=== PATIENT | female | born 1930 | race Caucasian/White ===

== ENCOUNTER 2016-12-31 10:26 | Observation (INO) | payer OTHER ==
[2016-12-31 10:44] VITALS: BMI 23.3
--- NOTE | 2016-12-31 11:02 | DR.GENAD ---
HPI - PCP Primary Care Physician: Dk - Complaint/Symptoms Chief Complaint Doctors Comments: Family states the patient was brushing her teeth in the bathroom and she heard a boom and the patient had fallen and hit the back of her head. She was on the floor and could not get up. States initially patient was not talking clearly and droowling from the mouth. States patient begin to come around and she went to the bathroom and had a large watery stool. Patient did not have any urine or fecal incontinence. She is a patient of Dr. Root and has dementia. Family states she fell about two years ago with compression fracture in her back that they put cement in and they are wondering if she hurt her back because they did not see how she fell and she is demented. Family states she has a history of recurrent UTI and they want that checked. States that by the time the ambulance got there she was talking normally and back to her usual self. Chief Complaint:: Syncope, fall at home - Nurses notes reviewed Nurses Notes Review: Yes - Source History Provided: Patient, Family Member - Mode of Arrival Mode of Arrival: Stretcher - Timing Onset of Chief Complaint: 12/31/16 Came on: Suddenly - Duration Duration: Constant How lon Duration: Hours - Location Location: occipital head - Severity Severity: Mild - Modifying Factors Worsens:: nothing Improves:: nothing PMH - PMH Past Medical History: Yes Past Medical History: CVA, Arthritis Past Surgical History: Yes Surgical History: Cholecystectomy, Hysterectomy - Family History History of Family Medical Conditions: Yes Family Medical History: Cancer, CT - Social History Does patient currently use any type of tobacco product: No Have you used tobacco products in the last 12 months: No Type of Tobacco Use: None Does any household member use tobacco: No Alcohol Use: None Do you use any recreational Drugs:: Yes Lives With: Family Lives Where: Home - infectious screening In the last 2 months have you had wt loss of >10#?: NO Have you had fever, night sweats or hemotysis?: No Have you traveled outside the country in the last 6 months?: No Isolation: Standard ROS - Review of Systems Constitutional: No Symptoms Reported. negative: See HPI, Chills, Diaphoresis, Fever, Malaise, Weakness, Irritable, Fatigue, Loss of Appetite, Other Eyes: No Symptoms Reported. negative: See HPI, Eye Pain, Blurred Vision, Tearing, Discharge, Photophobia, Diplopia, Other ENTM: No Symptoms Reported, Hearing Loss (hearing loss in one ear for a long time), Mouth Swelling (left lower jaw swelling that the dentist is working on presently) Respiratoy: No Symptoms Reported. negative: See HPI, Productive Cough, Non- Productive Cough, Moist Cough, Dry Cough, Hacking Cough, Barking Cough, Brassy Cough, Orthopnea, Short of Breath, Stridor, Wheezing, Hemoptysis, Other Cardiovascular: No Symptoms Reported, Syncope. negative: See HPI, Chest Pain, Edema, Palpitations, Cyanosis, Skin Mottling, Other Gastrointestinal/Abdominal: No Symptoms Reported. negative: See HPI, Abdominal Pain, Constipation, Diarrhea, Nausea, Vomiting, Food Intolerance, Other Genitourinary: No Symptoms Reported Neurological: No Symptoms Reported, Problems Walking, Speech Problem. negative : See HPI, Anxiety, Depressed, Emotional Problems, Headache, Numbness, Paresthesia, Pre-existing Deficit, Seizure, Tingling, Tremors, Weakness, Dizziness, Other Musculoskeletal: No Symptoms Reported, Right, Knee (pain and stiffness) Integumentary: No Symptoms Reported. negative: See HPI, Change in Color, Change in Hair/Nails, Dryness, Lesions, Lumps, Rash, Itching, Wound, Bruises, Juandice, Other Hematologic/Lymphatic: No Symptoms Reported. negative: See HPI, Anemia, Blood Clots, Easy Bleeding, Easy Bruising, Swollen Glands, Lymphadenopathy, Other Endocrine: No Symptoms Reported Psychiatric: No Symptoms Reported. negative: See HPI, Anxiety, Depression, Hallucinations, Excessive crying, Suicidal, Other PE - Vital Signs Vitals: Temperature 97.4 F Pulse Rate 65 Respiratory Rate 20 Blood Pressure [Left Calf] 175/79 Blood Pressure [Left Arm] 173/72 Blood Pressure [Right Arm] 176/76 Blood Pressure 179/74 O2 Sat by Pulse Oximetry 100 - General Limitations: No Limitations General Appearance: Alert, In No Apparent Distress - Head Head Exam: Normal Inspection, Atraumatic, Normocephalic - Eyes Eye exam: Normal Appearance, PERRL, EOMI. negative: Scleral Icterus, Conjunctival Injection, Nystagmus, Miosis, Mydrasis, Periorbital Swelling, Periorbital Tenderness, Other - ENT ENT Exam: Normal Exam, Normal Oropharynx, Normal External Ear Exam, Mucous Membranes Moist, TM's Normal Bilaterally External Ear Exam: Normal External Inspection TM/Canal Exam: Bilateral Normal Nose Exam: Normal Nose Exam Mouth Exam: Normal Inspection Throat Exam: Normal Inspection. negative: Tonsillar Erythema, Tonsillomegaly, Tonsillar Exudate, R Peritonsillar Mass, L Peritonsillar Mass, Muffled Voice, Other - Neck Neck Exam: Normal Inspection, Full ROM, Trachea Midline. negative: Tenderness, Meningismus, Lymphadenopathy, Thyromegaly, Other - Chest Chest Inspection: Normal Inspection, Symmetric Chest Wall Rise - Respiratory Respiratory Exam: Normal Lung Sounds Bilat Respiratory Exam: Bilateral Clear to Auscultation - Cardiovascular Cardiovascular Exam: Regular Rate, Normal Rhythm, Normal Heart Sounds. negative : Bradycardia, Tachycardia, Irregular Rhythm, Systolic Murmur, Diastolic Murmur , Rubs, Gallop, Clicks, JVD, +S1, +S2, +S3, +S4, Other - Abdominal Exam Abdominal Exam: Normal Inspection, Normal Bowel Sounds, Soft. negative: Distention, Tenderness, Guarding, Rebound, Rigidity, Dimnished Bowel Sounds, Hyperactive Bowel Sounds, Hypoactive Bowel Sounds, Organomegaly, Trauma, Incision, Ascites, Mass, Bruit, Pulsatile Mass, Hernia, Other Abdominal Tenderness: negative: RUQ, RLQ, LUQ, LLQ, Epigastrium, Suprapubic, Diffuse, Mild, Moderate, Severe, Other - Extremities Extremities Exam: Normal Inspection, Full ROM, Tenderness (right knee with crepitus; pain on flexion; no swelling or bruising noted), Normal Capillary Refill. negative: Edema, Joint Swelling, Calf Tenderness, Other - Back Back Exam: Normal Inspection, Full ROM. negative: Tenderness, (R) CVA Tenderness, (L) CVA Tenderness, Muscle Spasm, Paraspinal Tenderness, Vertebral Tenderness, Rashes, (R) Sciatic Notch Tenderness, (L) Sciatic Notch Tendern, (R ) Straight Leg Raise, (L) Straight Leg Raise, Other - Neurologic Neurological Exam: Alert, Oriented X3, CN II-XII Intact, Reflexes Normal. negative: Normal Gait (gait not tested) - Psychiatric Psychiatric Exam: Normal Affect, Normal Mood. negative: Depressed, Agitated, Anxious, Flat Affect, Manic, Homicidal Ideation, Suicidal Ideation, Other - Skin Skin Exam: Warm, Dry, Intact, Normal Color Course - Reevaluation 1st: Improved - Consultation Called: 14:36 Call Returned: 14:36 (Patient discussed with Dr. Davis states can go home) Consultation Comments: 1530: Patient had another episode while being loaded into the car to go home. Patient with slurred speech, lethargic, drowling for the left side of her mouth with left hand clinched and arm flexed stiff. Patient not responding readily to verbal stimuli. Dr. Davis called and the patient was discussed and he states to admit her to observation. Family member aware and agree with admission. Patient already on Plavix and aspirin and family states she was on coumadin one time but they stoped it. - Education/Counseling Education/Counseling: Patient, Family Educated On: Treatment, Diagnosis, Needs for Follow Up (Family member wants antibiotics for sinus because patient has odor and congestion) ROR - Labs Reviewed Laboratory Results Reviewed?: Yes (all labs and x-ray results reviewed and discussed with patient and family.) Result Diagrams: 12/31/16 10:55 12/31/16 10:55 Laboratory: WBC 5.5 X10^3/uL (3.6-10.0) 12/31/16 10:55 RBC 3.76 X10^6/uL (3.5-5.4) 12/31/16 10:55 Hgb 11.7 g/dL (12.0-16.0) L 12/31/16 10:55 Hct 34.8 % (36.0-47.0) L 12/31/16 10:55 MCV 92.7 fL (80.0-100.0) 12/31/16 10:55 MCH 31.2 pg (27.0-34.0) 12/31/16 10:55 MCHC 33.6 g/dL (33.0-35.0) 12/31/16 10:55 RDW 13.8 % (11.6-16.5) 12/31/16 10:55 Plt Count 191 X10^3/uL (150.0-450.0) 12/31/16 10:55 MPV 8.4 fL (7.4-11.0) 12/31/16 10:55 Neut % 50.6 % (42.0-75.0) 12/31/16 10:55 Lymph % 41.2 % (21.0-51.0) 12/31/16 10:55 Cotton % 6.8 % (0.0-13.0) 12/31/16 10:55 Eos % 0.9 % (0.9-2.9) 12/31/16 10:55 Baso % 0.5 % (0.2-1.0) 12/31/16 10:55 Neut # 2.8 x10^3/uL (2.2-4.8) 12/31/16 10:55 Lymph # 2.3 X10^3/uL (1.3-2.9) 12/31/16 10:55 Cotton # 0.4 x10^3/uL (0.3-0.8) 12/31/16 10:55 Eos # 0.0 x10^3/uL (0.0-0.2) 12/31/16 10:55 Baso # 0.0 X10^3/uL (0.0-0.1) 12/31/16 10:55 Absolute Nucleated RBC 0.1 /100WBC 12/31/16 10:55 INR Target Range - 12/31/16 10:55 INR 1.01 (0.8-1.3) 12/31/16 10:55 PTT 25.1 SECONDS (22.9-36.5) 12/31/16 10:55 PTT Comment - 12/31/16 10:55 D-Dimer 685 ng/mL (0-400) H* 12/31/16 10:55 Sodium 143 mmol/L (136-145) 12/31/16 10:55 Corrected Sodium TNP 12/31/16 10:55 Potassium 4.3 mmol/L (3.5-5.1) 12/31/16 10:55 Chloride 109 mmol/L (98-107) H 12/31/16 10:55 Carbon Dioxide 27.8 mmol/L (21-32) 12/31/16 10:55 BUN 27 mg/dL (7-18) H 12/31/16 10:55 Creatinine 1.53 mg/dL (0.55-1.02) H 12/31/16 10:55 Est GFR (MDRD) Af Amer 41 (>60) L 12/31/16 10:55 Est GFR (MDRD) Non-Af 34 (>60) L 12/31/16 10:55 Glucose 110 mg/dL (65-99) H 12/31/16 10:55 Calcium 8.3 mg/dL (8.5-10.1) L 12/31/16 10:55 Corrected Calcium 9.1 mg/dL (8.5-10.1) 12/31/16 10:55 Magnesium 2.2 mg/dL (1.7-2.9) 12/31/16 10:55 Total Bilirubin 0.30 mg/dL (0.2-1.0) 12/31/16 10:55 AST 21 Units/L (15-37) 12/31/16 10:55 ALT 17 Units/L (12-78) 12/31/16 10:55 Alkaline Phosphatase 49 Units/L (46-116) 12/31/16 10:55 Creatine Kinase 54 Units/L (26-192) 12/31/16 10:55 CK-MB (CK-2) 1.7 ng/mL (0-4.0) 12/31/16 10:55 CK/CKMB % Calc 3.2 % (<4) 12/31/16 10:55 Troponin I < 0.02 ng/mL (0-1.5) 12/31/16 10:55 Total Protein 6.1 g/dL (6.4-8.2) L 12/31/16 10:55 Albumin 3.0 g/dL (3.4-5.0) L 12/31/16 10:55 Globulin 3.1 g/dL (2.5-4.5) 12/31/16 10:55 Albumin/Globulin Ratio 1.0 Ratio (1.1-2.1) L 12/31/16 10:55 Specimen Type Clean catch urine 12/31/16 12:41 Urine Color Yellow (YELLOW) 12/31/16 12:41 Urine Appearance Clear (CLEAR) 12/31/16 12:41 Urine pH 5.0 (5.0 - 8.0) 12/31/16 12:41 Ur Specific [place] 1.015 (1.000-1.030) 12/31/16 12:41 Urine Protein Negative (NEGATIVE) 12/31/16 12:41 Urine Glucose (UA) Negative (NEGATIVE) 12/31/16 12:41 Urine Ketones Negative (NEGATIVE) 12/31/16 12:41 Urine Occult Blood 1+ (NEGATIVE) 12/31/16 12:41 Urine Nitrite Negative (NEGATIVE) 12/31/16 12:41 Urine Bilirubin Negative (NEGATIVE) 12/31/16 12:41 Urine Urobilinogen Normal (NORMAL) 12/31/16 12:41 Ur Leukocyte Esterase 1+ (NEGATIVE) 12/31/16 12:41 Urine RBC 0-2 /HPF (NEGATIVE) 12/31/16 12:41 Urine WBC 0-3 /HPF (NEGATIVE) 12/31/16 12:41 Ur Squamous Epith Cells Rare /HPF (NEGATIVE) 12/31/16 12:41 Urine Bacteria Trace /HPF (NEGATIVE) 12/31/16 12:41 Ur Culture Indicated? No/not indicated 12/31/16 12:41 - XRAY XRAY Interpreted by: Radiologist (CT brain: No acute intracranial process identified. Mild to moderate generalized atrophy consistent with chronic small vessel ischemic disease. Remote infarcts), Both (CT lumbar spine: Post operatiave and degenerative changes.) XRAY Findings: CT cervical spine: multilevel degenerative changes. - EKG Rate: 60 [place]: Normal Rhythm: NSR Block: None ST: Nonsp - Diagnosis Discharge Problem: Fall against object, cva old, Degenerative arthritis, Alzheimer disease, TIA ( transient ischemic attack) Contusion of head Qualifiers: Encounter type: initial encounter Sinusitis Qualifiers: Sinusitis location: frontal Traumatic hematoma of head Qualifiers: Encounter type: initial encounter Qualified Code(s): S00.93XA - Contusion of unspecified part of head, initial encounter - Discharge Plan Disposition: ADMITTED INPATIENT Condition: Stable Prescriptions: Cephalexin [KEFLEX CAP 500 MG *] 500 mg PO BID #21 cap - Follow ups/Referrals Follow ups/Referrals: Grabiel Root [Primary Care Provider] - 3 days - Instructions Instructions: Syncope, [id number], Head Injury, Adult, [id number], Sinusitis, Adult, [id number], Hematoma
[2016-12-31 11:09] LABS: BASOPHILS % (AUTO) 0.5 % (0.2-1.0); EOSINOPHILS % (AUTO) 0.9 % (0.9-2.9); HEMATOCRIT 34.8 % (36.0-47.0); HEMOGLOBIN 11.7 g/dL (12.0-16.0); LYMPHOCYTES # (AUTO) 2.3 X10^3/uL (1.3-2.9); LYMPHOCYTES % (AUTO) 41.2 % (21.0-51.0); MEAN CORPUSCULAR HEMOGLOBIN 31.2 pg (27.0-34.0); MEAN CORPUSCULAR HGB CONC 33.6 g/dL (33.0-35.0); MEAN CORPUSCULAR VOLUME 92.7 fL (80.0-100.0); MEAN PLATELET VOLUME 8.4 fL (7.4-11.0); MONOCYTES # (AUTO) 0.4 x10^3/uL (0.3-0.8); MONOCYTES % (AUTO) 6.8 % (0.0-13.0); NEUTROPHILS # (AUTO) 2.8 x10^3/uL (2.2-4.8); NEUTROPHILS % (AUTO) 50.6 % (42.0-75.0); PLATELET COUNT 191 X10^3/uL (150.0-450.0); RED BLOOD COUNT 3.76 X10^6/uL (3.5-5.4); RED CELL DISTRIBUTION WIDTH 13.8 % (11.6-16.5); WHITE BLOOD COUNT 5.5 X10^3/uL (3.6-10.0)
[2016-12-31 11:30] LABS: BLOOD UREA NITROGEN 27 mg/dL (7-18); CALCIUM 8.3 mg/dL (8.5-10.1); CARBON DIOXIDE 27.8 mmol/L (21-32); CHLORIDE 109 mmol/L (98-107); CREATININE 1.53 mg/dL (0.55-1.02); GLUCOSE 110 mg/dL (65-99); SODIUM 143 mmol/L (136-145); TROPONIN I < 0.02 ng/mL (0-1.5); eGFR BLACK RACES 41 (>60); eGFR NON BLACK RACES 34 (>60)
[2016-12-31 11:35] LABS: ALANINE AMINOTRANSFERASE 17 Units/L (12-78); ALKALINE PHOSPHATASE 49 Units/L (46-116); ASPARTATE AMINO TRANSFERASE 21 Units/L (15-37); CKMB % 3.2 % (<4); COR CA(FOR HYPOALB) 9.1 mg/dL (8.5-10.1); CREATINE KINASE 54 Units/L (26-192); CREATINE KINASE MB 1.7 ng/mL (0-4.0); MAGNESIUM 2.2 mg/dL (1.7-2.9); TOTAL PROTEIN 6.1 g/dL (6.4-8.2)
--- NOTE | 2016-12-31 12:00 | CT ---
HISTORY: Fall Study: CT brain without contrast Comparison: February 07, 2015 Technique: Multiple axial images of the brain were obtained from the skull base to the vertex without administr ation of IV contrast. Findings: No acute intraparenchymal hemorrhage or mass can be identified. No extra-axial fluid collections ar e seen. No alteration in the attenuation of the brain parenchyma can be identified to suggest acute or subacute ischemic change. The ventricles, sulci, and cisterns demonstrate an appearance consist ent with a [id number]-[id number] degree of generalized atrophy. Remote bilateral DENTURE PROCESSOR territorial infarcts are again noted. Patchy areas of decreased attenuation within the periventricular, subcortical, and subinsular white matter suggest changes of chronic small vessel ischemic disease. If symptoms are clinical concern persist recommend continued followup for further evaluation. IMPRESSION: 1. No acute intracranial process can be identified. 2. [id number] generalized atrophy with findings consistent with changes of chronic small vesse l ischemic disease. 3. Remote infarcts as noted above. Reported By:
--- NOTE | 2016-12-31 12:06 | CT ---
HISTORY: Fall Study: CT lumbar spine without contrast Comparison: None Technique: Multiple axial images of the lumbar spine were obtained from the thoracolumbar junction to the sacrum without the administration of IV contrast. Sagittal and coronal reformats were perfor med and reviewed. Findings: Postoperative changes of vertebroplasty is demonstrated at L2. Multilevel endplate degenerative tesfaye ges are noted. Otherwise the remaining lumbar vertebral body heights are relatively maintained. Dege nerative facet changes are seen throughout the lumbar spine. Vacuum disc phenomenon is noted at T12/ L1, L1/L2, L4/L5, and L5/S1. Minimal multilevel osteophytosis is also demonstrated. Atherosclerotic changes are seen within the visualized aorta. Calcifications and or tubing are noted within the rig ht kidney. The renal pelves are demonstrated bilaterally. There is questionable peripelvic cyst bila terally as well. Surgical clips are noted within the gallbladder fossa. Postsurgical changes of the pelvis are noted. Scattered diverticula are seen within the descending and sigmoid colon. IMPRESSION: 1. Postoperative and degenerative changes as noted above. 2. Other findings as discussed above. Reported By:
--- NOTE | 2016-12-31 12:10 | CT ---
HISTORY: Neck pain Study: CT cervical spine without contrast Comparison: None Technique: Multiple axial images of the cervical spine were obtained from the skull base to the thor acic inlet without administration of IV contrast. Sagittal and coronal reformats were performed and reviewed. Findings: The cervical vertebral body heights are relatively maintained. No evidence for acute cortical disru ption or significant subluxation can be seen. The central canal remains free of compromise from bon y fragments. Degenerative facet changes are seen throughout the cervical spine. Multilevel intervertebral disc space narrowing is also noted. Degenerative changes of the odontoid a re demonstrated as well. Atherosclerotic changes are seen within the visualized aorta. If symptoms a re clinical concern persist correlation with MRI may be helpful. IMPRESSION: 1. Multilevel degenerative changes as noted above. Reported By:
[2016-12-31 12:12] LABS: D DIMER 685 ng/mL (0-400)
[2016-12-31 12:52] LABS: BILIRUBIN,URINE NEGATIVE (NEGATIVE); BLOOD/HEMOGLOBIN,URINE 1+ (NEGATIVE); GLUCOSE, URINE NEGATIVE (NEGATIVE); KETONES,URINE NEGATIVE (NEGATIVE); LEUKOCYTE ESTERASE ,URINE 1+ (NEGATIVE); NITRITES,URINE NEGATIVE (NEGATIVE); PROTEIN,URINE NEGATIVE (NEGATIVE); UROBILINOGEN,URINE NORMAL (NORMAL)
[2016-12-31 13:08] LABS: APPEARANCE,URINE CLEAR (CLEAR); COLOR,URINE YELLOW (YELLOW)
[2016-12-31 13:41] LABS: BACTERIA,URINE TRACE /HPF (NEGATIVE); RBC,URINE 0-2 /HPF (NEGATIVE); SQUAMOUS EPITHELIAL CELL,UR RARE /HPF (NEGATIVE)
[2016-12-31] MEDS ORDERED: TYLENOL 500 MG TAB EXTRA STRENGTH PO STA (14:29)
[2016-12-31] MEDS ORDERED: KEFLEX CAP 500 MG PO ONE ×2 (14:30→14:40)
[2016-12-31] MEDS ORDERED: TYLENOL 500 MG TAB EXTRA STRENGTH PO ONE (14:40)
[2016-12-31] MEDS ORDERED: NS 1/2 1000 ML IV 1,000 ML IV SCH (17:00)
--- NOTE | 2016-12-31 17:08 | RAD ---
HISTORY: Chest pain Study: Single view chest. Comparison: September 10, 2015. Findings: The trachea is midline. The cardiac silhouette is enlarged with a tortuous thoracic aorta. Aortic a therosclerosis is noted. Chronic interstitial lung changes remain. No pneumothorax is seen. The jerrell gs are clear without focal infiltrate or effusion. The bony thorax is unremarkable. IMPRESSION: 1. No acute cardiopulmonary changes seen. Reported By:
[2016-12-31] MEDS ORDERED: NS 1000 ML 1,000 ML ONE (18:24)
[2016-12-31] MEDS ORDERED: NS 1/2 1000 ML IV 1,000 ML IV ONE (18:43)
[2016-12-31] MEDS: PLAVIX PO SCH (18:45)
[2016-12-31] MEDS ORDERED: ECOTRIN TAB 325 MG PO SCH (21:00)
[2016-12-31] MEDS ORDERED: ARICEPT TAB 5 MG PO SCH (21:00)
[2017-01-01] MEDS: PLAVIX PO SCH (08:53)
[2017-01-01] MEDS ORDERED: PROTONIX INJ 40 MG VIAL IVP SCH (09:00)
[2017-01-01 12:47] VITALS: BP 176/73
== END 2017-01-01 13:05 | disposition home or self-care (01) ==
LOC: ER 10:32 → MED/SURG 16:54
PROVIDERS: ADMIT Obstetrics & Gynecology Obstetrics; ATTEND Internal Medicine
DX: G45.8 Other transient cerebral ischemic attacks and related syndromes (principal); R55 Syncope and collapse; S00.93XA Contusion of unspecified part of head, initial encounter; R41.82 Altered mental status, unspecified; Z87.440 Personal history of urinary (tract) infections; Z79.1 Long term (current) use of non-steroidal anti-inflammatories (NSAID); G30.8 Other Alzheimer's disease; F02.80 Dementia in other diseases classified elsewhere, unspecified severity, without behavioral disturbance, psychotic disturbance, mood disturbance, and anxiety; M13.89 Other specified arthritis, multiple sites; Z86.73 Personal history of transient ischemic attack (TIA), and cerebral infarction without residual deficits; Y92.091 Bathroom in other non-institutional residence as the place of occurrence of the external cause; W18.39XA Other fall on same level, initial encounter
CPT/HCPCS: 36415; 70450; 71010; 72125; 72131; 80053; 81001; 82550; 82553; 83735; 84484; 85025; 85378; 85610; 85730; 93005; 94760; 96365; 99284; A4222; C9113; G0378

== ENCOUNTER 2017-12-05 12:55 | Observation (INO) ==
[2017-12-05] MEDS ORDERED: NS 1000 ML 1,000 ML ONE (13:42)
[2017-12-05] MEDS ORDERED: NS 1000 ML 1,000 ML IV SCH (14:00)
--- NOTE | 2017-12-05 14:11 | RAD ---
HISTORY: Chest pain Study: Chest AP portable Comparison: 12/31/2016 Findings: The heart is upper limits normal in size. No congestive heart failure is noted. The aorta is calcifie d and mildly ectatic. The lung stewart are clear. The bony thorax is unremarkable. IMPRESSION: No significant acute cardiopulmonary abnormality Reported By:
[2017-12-05 14:19] LABS: BASOPHILS % (AUTO) 0.4 % (0.2-1.0); EOSINOPHILS # (AUTO) 0.1 x10^3/uL (0.0-0.2); EOSINOPHILS % (AUTO) 0.8 % (0.9-2.9); HEMATOCRIT 37.2 % (36.0-47.0); HEMOGLOBIN 12.4 g/dL (12.0-16.0); LYMPHOCYTES # (AUTO) 2.3 X10^3/uL (1.3-2.9); LYMPHOCYTES % (AUTO) 28.8 % (21.0-51.0); MEAN CORPUSCULAR HEMOGLOBIN 31.4 pg (27.0-34.0); MEAN CORPUSCULAR HGB CONC 33.3 g/dL (33.0-35.0); MEAN CORPUSCULAR VOLUME 94.3 fL (80.0-100.0); MONOCYTES # (AUTO) 0.5 x10^3/uL (0.3-0.8); MONOCYTES % (AUTO) 5.8 % (0.0-13.0); NEUTROPHILS # (AUTO) 5.1 x10^3/uL (2.2-4.8); NEUTROPHILS % (AUTO) 64.2 % (42.0-75.0); PLATELET COUNT 220 X10^3/uL (150.0-450.0); RED BLOOD COUNT 3.94 X10^6/uL (3.5-5.4); RED CELL DISTRIBUTION WIDTH 14.8 % (11.6-16.5); WHITE BLOOD COUNT 7.9 X10^3/uL (3.6-10.0)
--- NOTE | 2017-12-05 14:34 | CT ---
HISTORY: Altered mental status, dementia Study: CT brain without contrast Comparison: 12/31/2016 Technique: Multiple axial images of the brain were obtained without administration of IV contrast. Dose reducti on techniques including Automated Exposure Control (AEC) and adjustment of mA and kV were utilized. Findings: There is cerebral volume loss and nonspecific white matter hypoattenuation likely related to chronic microvascular ischemic changes. There is chronic bilateral occipital lobe encephalomalacia compatible with remote infarctions. No evidence of acute hemorrhage, midline shift, mass effect or abnormal ext ra-axial fluid collection. Prominence of the ventricles and cortical sulci is commensurate with volu me loss. The soft tissues and osseous structures are unremarkable. The visualized paranasal sinuses are clear. IMPRESSION: 1. Chronic ischemic changes as described without acute intracranial abnormality. Reported By:
[2017-12-05 14:43] LABS: LACTIC ACID 0.8 mmol/L (0.4-2.0)
[2017-12-05 14:44] LABS: BLOOD UREA NITROGEN 29 mg/dL (7-18); CALCIUM 9.2 mg/dL (8.5-10.1); CHLORIDE 107 mmol/L (98-107); CREATININE 1.23 mg/dL (0.55-1.02); SODIUM 140 mmol/L (136-145); TROPONIN I < 0.02 ng/mL (0-1.5); eGFR NON BLACK RACES 44 (>60)
[2017-12-05 14:48] LABS: ALANINE AMINOTRANSFERASE 25 Units/L (12-78); ALBUMIN 3.1 g/dL (3.4-5.0); ALKALINE PHOSPHATASE 81 Units/L (46-116); ASPARTATE AMINO TRANSFERASE 24 Units/L (15-37); CKMB % 3.7 % (<4); COR CA(FOR HYPOALB) 9.9 mg/dL (8.5-10.1); CREATINE KINASE 43 Units/L (26-192); CREATINE KINASE MB 1.6 ng/mL (0-4.0); TOTAL PROTEIN 6.2 g/dL (6.4-8.2)
[2017-12-05 16:01] LABS: BILIRUBIN,URINE NEGATIVE (NEGATIVE); BLOOD/HEMOGLOBIN,URINE NEGATIVE (NEGATIVE); GLUCOSE, URINE NEGATIVE (NEGATIVE); KETONES,URINE NEGATIVE (NEGATIVE); LEUKOCYTE ESTERASE ,URINE NEGATIVE (NEGATIVE); NITRITES,URINE NEGATIVE (NEGATIVE); PROTEIN,URINE NEGATIVE (NEGATIVE); UROBILINOGEN,URINE NORMAL (NORMAL)
[2017-12-05 16:13] LABS: APPEARANCE,URINE CLEAR (CLEAR); COLOR,URINE YELLOW (YELLOW)
[2017-12-05] MEDS ORDERED: KLONOPIN TAB 0.5 MG PO PRN (17:33)
[2017-12-05 18:25] VITALS: BMI 24.7
[2017-12-05] MEDS: TYLENOL 325 MG TAB PO PRN (19:47)
[2017-12-05 20:58] LABS: CKMB % 4.2 % (<4); CREATINE KINASE 38 Units/L (26-192); CREATINE KINASE MB 1.6 ng/mL (0-4.0); TROPONIN I < 0.02 ng/mL (0-1.5)
[2017-12-05] MEDS ORDERED: PATIENT'S HOME MEDICATION (Memantine [Memantine] 5 MG) PO SCH (21:00)
[2017-12-05] MEDS: ARICEPT TAB 5 MG PO SCH (21:01)
[2017-12-05] MEDS: NAMENDA TAB 10 MG PO SCH (21:01)
--- NOTE | 2017-12-06 02:25 | DR.GENAD ---
HPI PCP Primary Care Physician: MAGGIE HPI Comment HPI Comment: PATIENT HAVE GENERALIZE WEAKNESS, CHEST PAIN, AND IS CONFUSE. SHE IS NOT SLEEPING WELL AT NIGHT. SHE KEEP YELLING AT NIGHT. Complaint/Symptoms Chief Complaint Doctors Comments: CHEST PAIN, AMS NOTED TODAY. Chief Complaint:: PT HAS HAD NAUSEA TODAY AND TOLD FAMILY SHE FELT FUNNY IN THE CHEST. HAS NOT BEEN SLEEPING WELL AT NIGHT AND YELLS AND HOLLERS Source History Provided: Family Member Mode of Arrival Mode of Arrival: Wheelchair Timing Onset of Chief Complaint: 12/05/17 Came on: Suddenly Duration Duration: Constant Duration: Days Severity Severity: Moderate Modifying Factors Worsens:: NONE Improves:: NONE Associated Signs and Symptoms Associated Signs and Symptoms: SLEEP DISTURBABCY. PMH PMH Past Medical History: Yes Past Medical History: Arthritis, CVA and Dementia Past Surgical History: Yes Surgical History: No History, Cholecystectomy and Hysterectomy Family History History of Family Medical Conditions: Yes Family Medical History: Cancer and [place] Social History Do you use any recreational Drugs:: No Lives With: Family Lives Where: Home infectious screening In the last 2 months have you had wt loss of >10#?: NO Have you had fever, night sweats or hemotysis?: No Have you traveled outside the country in the last 6 months?: No Isolation: Standard ROS Review of Systems Constitutional: Weakness, Fatigue and Loss of Appetite; negative Chills and Fever Eyes: negative Eye Pain and Discharge ENTM: negative Ear Pain, Ear Discharge, Nose Discharge, Nose Congestion and Throat Pain Respiratoy: Non-Productive Cough and Short of Breath (ON EXERSION); negative Hemoptysis Cardiovascular: Chest Pain; negative Edema Gastrointestinal/Abdominal: negative Abdominal Pain, Constipation, Diarrhea, Nausea and Vomiting Genitourinary: negative Dysuria and Hematuria Neurological: Headache, Weakness and Problems Walking (CHRONIC.) Musculoskeletal: Back Pain and Back Integumentary: Change in Color and Dryness Hematologic/Lymphatic: Easy Bleeding Endocrine: No Symptoms Reported Unable to Obtain Due To: Altered mental status PE Vital Signs Vitals: Temperature 97.7 F Pulse Rate [Left Brachial] 58 Pulse Rate 70 Respiratory Rate 13 Blood Pressure [Left Calf] 193/78 Blood Pressure [Left Arm] 141/63 Blood Pressure [Right Arm] 172/67 Blood Pressure 168/71 O2 Sat by Pulse Oximetry 100 General Limitations: Altered Mental Status General Appearance: Alert and In No Apparent Distress Head Head Exam: Normal Inspection, Atraumatic and Normocephalic Eyes Eye exam: PERRL and EOMI; negative Scleral Icterus, Conjunctival Injection, Periorbital Swelling and Periorbital Tenderness ENT ENT Exam: Normal Oropharynx, Normal External Ear Exam, Mucous Membranes Dry and TM's Normal Bilaterally External Ear Exam: Normal External Inspection; negative Mastoid Tenderness and Periauricular Adenopathy TM/Canal Exam: Bilateral: Normal Nose Exam: Normal Nose Exam Mouth Exam: Normal Inspection Throat Exam: negative Normal Inspection, Tonsillar Erythema, Tonsillomegaly, Tonsillar Exudate and R Peritonsillar Mass Neck Neck Exam: Normal Inspection; negative Tenderness, Meningismus and Lymphadenopathy Chest Chest Inspection: Normal Inspection and Symmetric Chest Wall Rise; negative Tenderness Respiratory Respiratory Exam: Normal Lung Sounds Bilat; negative Chest Wall Tenderness Respiratory Exam: Bilateral: Rhonchi and Lower: Rhonchi Cardiovascular Cardiovascular Exam: Regular Rate, Normal Rhythm and Normal Heart Sounds Abdominal Exam Abdominal Exam: Normal Inspection, Normal Bowel Sounds and Soft; negative Tenderness Extremities Extremities Exam: Normal Capillary Refill and Joint Swelling; negative Tenderness, Edema and Calf Tenderness Back Back Exam: Paraspinal Tenderness (LOWER BACK) Neurologic Neurological Exam: Alert and Other (CONFUSE, ORIENTED TO PERSON.) Psychiatric Psychiatric Exam: Flat Affect Skin Skin Exam: Dry MDM Additional Information Additional Information Obtained From: Family Differential Diagnosis Differential Diagnosis: AMS, CVA, UTI, SEPSIS, [place], PNEUMONIA COURSE Treatment Treatment: SEE ORDERS. Reevaluation 1st: Unchanged Consultation Consultation Comments: DISCUSS PATIENT WITH DR. SERRANO. HE WILL ADMIT PATIENT. Education/Counseling Education/Counseling: Patient and Family Educated On: Diagnosis ROR Labs Reviewed Laboratory Results Reviewed?: Yes Result Diagrams: 12/05/17 14:10 12/05/17 14:10 Laboratory: WBC 7.9 X10^3/uL (3.6-10.0) 12/05/17 14:10 RBC 3.94 X10^6/uL (3.5-5.4) 12/05/17 14:10 Hgb 12.4 g/dL (12.0-16.0) 12/05/17 14:10 Hct 37.2 % (36.0-47.0) 12/05/17 14:10 MCV 94.3 fL (80.0-100.0) 12/05/17 14:10 MCH 31.4 pg (27.0-34.0) 12/05/17 14:10 MCHC 33.3 g/dL (33.0-35.0) 12/05/17 14:10 RDW 14.8 % (11.6-16.5) 12/05/17 14:10 Plt Count 220 X10^3/uL (150.0-450.0) 12/05/17 14:10 MPV 8.0 fL (7.4-11.0) 12/05/17 14:10 Neut % (Auto) 64.2 % (42.0-75.0) 12/05/17 14:10 Lymph % (Auto) 28.8 % (21.0-51.0) 12/05/17 14:10 [place] % (Auto) 5.8 % (0.0-13.0) 12/05/17 14:10 Eos % (Auto) 0.8 % (0.9-2.9) L 12/05/17 14:10 Baso % (Auto) 0.4 % (0.2-1.0) 12/05/17 14:10 Neut # (Auto) 5.1 x10^3/uL (2.2-4.8) H 12/05/17 14:10 Lymph # (Auto) 2.3 X10^3/uL (1.3-2.9) 12/05/17 14:10 [place] # (Auto) 0.5 x10^3/uL (0.3-0.8) 12/05/17 14:10 Eos # (Auto) 0.1 x10^3/uL (0.0-0.2) 12/05/17 14:10 Baso # (Auto) 0.0 X10^3/uL (0.0-0.1) 12/05/17 14:10 Absolute Nucleated RBC 0.0 /100WBC 12/05/17 14:10 Sodium 140 mmol/L (136-145) 12/05/17 14:10 Corrected Sodium TNP 12/05/17 14:10 Potassium 4.3 mmol/L (3.5-5.1) 12/05/17 14:10 Chloride 107 mmol/L (98-107) 12/05/17 14:10 Carbon Dioxide 31.0 mmol/L (21-32) 12/05/17 14:10 BUN 29 mg/dL (7-18) H 12/05/17 14:10 Creatinine 1.23 mg/dL (0.55-1.02) H 12/05/17 14:10 Est GFR (MDRD) Af Amer 53 (>60) L 12/05/17 14:10 Est GFR (MDRD) Non-Af 44 (>60) L 12/05/17 14:10 Glucose 91 mg/dL (65-99) 12/05/17 14:10 Lactic Acid 0.8 mmol/L (0.4-2.0) 12/05/17 14:10 Calcium 9.2 mg/dL (8.5-10.1) 12/05/17 14:10 Corrected Calcium 9.9 mg/dL (8.5-10.1) 12/05/17 14:10 Total Bilirubin 0.20 mg/dL (0.2-1.0) 12/05/17 14:10 AST 24 Units/L (15-37) 12/05/17 14:10 ALT 25 Units/L (12-78) 12/05/17 14:10 Alkaline Phosphatase 81 Units/L (46-116) 12/05/17 14:10 Creatine Kinase 38 Units/L (26-192) 12/05/17 20:27 CK-MB (CK-2) 1.6 ng/mL (0-4.0) 12/05/17 20:27 CK/CKMB % Calc 4.2 % (<4) 12/05/17 20:27 Troponin I < 0.02 ng/mL (0-1.5) 12/05/17 20:27 Total Protein 6.2 g/dL (6.4-8.2) L 12/05/17 14:10 Albumin 3.1 g/dL (3.4-5.0) L 12/05/17 14:10 Globulin 3.1 g/dL (2.5-4.5) 12/05/17 14:10 Albumin/Globulin Ratio 1.0 Ratio (1.1-2.1) L 12/05/17 14:10 Specimen Type Catherized urine 12/05/17 15:50 Urine Color Yellow (YELLOW) 12/05/17 15:50 Urine Appearance Clear (CLEAR) 12/05/17 15:50 Urine pH 5.0 (5.0 - 8.0) 12/05/17 15:50 Ur Specific [place] 1.025 (1.000-1.030) 12/05/17 15:50 Urine Protein Negative (NEGATIVE) 12/05/17 15:50 Urine Glucose (UA) Negative (NEGATIVE) 12/05/17 15:50 Urine Ketones Negative (NEGATIVE) 12/05/17 15:50 Urine Occult Blood Negative (NEGATIVE) 12/05/17 15:50 Urine Nitrite Negative (NEGATIVE) 12/05/17 15:50 Urine Bilirubin Negative (NEGATIVE) 12/05/17 15:50 Urine Urobilinogen Normal (NORMAL) 12/05/17 15:50 Ur Leukocyte Esterase Negative (NEGATIVE) 12/05/17 15:50 XRAY XRAY Interpreted by: Radiologist XRAY Findings: REPORT DISCUSS WITH FAMILY AND PATIENT. EKG Rhythm: NSR Diagnosis Discharge Problem: Altered mental status, Chest pain
[2017-12-06 02:54] LABS: CKMB % 4.3 % (<4); CREATINE KINASE MB 1.3 ng/mL (0-4.0); TROPONIN I 0.02 ng/mL (0-1.5)
[2017-12-06] MEDS: TYLENOL 325 MG TAB PO PRN (04:07)
[2017-12-06] MEDS: NS 1000 ML 1,000 ML IV SCH ×2 (05:07→08:45)
[2017-12-06 06:45] LABS: BASOPHILS % (AUTO) 0.4 % (0.2-1.0); EOSINOPHILS # (AUTO) 0.1 x10^3/uL (0.0-0.2); EOSINOPHILS % (AUTO) 1.1 % (0.9-2.9); HEMATOCRIT 33.8 % (36.0-47.0); HEMOGLOBIN 11.6 g/dL (12.0-16.0); LYMPHOCYTES # (AUTO) 1.9 X10^3/uL (1.3-2.9); LYMPHOCYTES % (AUTO) 29.5 % (21.0-51.0); MEAN CORPUSCULAR HEMOGLOBIN 32.1 pg (27.0-34.0); MEAN CORPUSCULAR HGB CONC 34.4 g/dL (33.0-35.0); MEAN CORPUSCULAR VOLUME 93.3 fL (80.0-100.0); MEAN PLATELET VOLUME 8.5 fL (7.4-11.0); MONOCYTES # (AUTO) 0.5 x10^3/uL (0.3-0.8); MONOCYTES % (AUTO) 8.1 % (0.0-13.0); NEUTROPHILS # (AUTO) 3.8 x10^3/uL (2.2-4.8); NEUTROPHILS % (AUTO) 60.9 % (42.0-75.0); PLATELET COUNT 195 X10^3/uL (150.0-450.0); RED BLOOD COUNT 3.62 X10^6/uL (3.5-5.4); RED CELL DISTRIBUTION WIDTH 14.7 % (11.6-16.5); WHITE BLOOD COUNT 6.3 X10^3/uL (3.6-10.0)
[2017-12-06 07:11] LABS: ALANINE AMINOTRANSFERASE 20 Units/L (12-78); ALBUMIN 2.6 g/dL (3.4-5.0); ALKALINE PHOSPHATASE 69 Units/L (46-116); ASPARTATE AMINO TRANSFERASE 20 Units/L (15-37); BLOOD UREA NITROGEN 24 mg/dL (7-18); CALCIUM 8.6 mg/dL (8.5-10.1); CARBON DIOXIDE 25.5 mmol/L (21-32); CHLORIDE 109 mmol/L (98-107); CHOLESTEROL 200 mg/dL (0-200); COR CA(FOR HYPOALB) 9.7 mg/dL (8.5-10.1); CREATININE 1.17 mg/dL (0.55-1.02); HDL CHOLESTEROL 67 mg/dL (40-60); SODIUM 140 mmol/L (136-145); TOTAL PROTEIN 5.4 g/dL (6.4-8.2); TRIGLYCERIDES 55 mg/dL (0-150); eGFR NON BLACK RACES 47 (>60)
[2017-12-06] MEDS: PLAVIX PO SCH (08:46)
[2017-12-06] MEDS: NAMENDA TAB 10 MG PO SCH ×2 (08:46→20:43)
[2017-12-06] MEDS: VITAMIN D3 PO SCH ×3 (08:47→15:00)
[2017-12-06] MEDS: VITAMIN B-6 PO SCH (08:47)
[2017-12-06] MEDS ORDERED: [UNRECOGNIZED DRUG - OTHER] PO SCH (09:00)
[2017-12-06] MEDS ORDERED: CHOLECALCIFEROL PO SCH (09:00)
--- NOTE | 2017-12-06 11:51 | DR.H&P ---
H&P - History & Physical for Day of: H&P Date: 12/05/17 - Chief Complaint Chief Complaint: WEAKNESS, CHEST PAIN, SLEEP DISTURBANCY, CONFUSION - History of Present Illness History of Present Illness: IS A 87 YEAR OLD PATIENT OF OURS WHO PRESENTED TO THE EMERGENCY ROOM WITH COMPLAINTS OF GENERALIZED WEAKNESS, CHEST PAIN, SLEEP DISTURBANCY, AND NAUSEA. FAMILY REPORTS THAT PATIENT HAS BEEN NOTED WITH INCREASED CONFUSION AND HAS BEEN YELLING OUT ALL THROUGHOUT THE NIGHT. THEY REPORT THAT SHE IS UNABLE TO STAND. ON ARRIVAL, VITALS WERE 97.6-70-14-100% -168/71. LABS WERE OBTAINED. ABNORMAL LAB VALUES INCLUDE THE FOLLOWING: BUN 29, CREATININE 1.23, TOTAL PROTEIN 6.2, ALBUMIN 3.1. CARDIAC ENZYMES WITHIN NORMAL LIMITS. URINALYSIS UNREMARKABLE. BLOOD CULTURES ARE PENDING. A CHEST XRAY WAS OBTAINED AND REVEALED: No significant acute cardiopulmonary abnormality. BRAIN CT REVEALED: There is cerebral volume loss and nonspecific white matter hypoattenuation likely related to chronic microvascular ischemic changes. There is chronic bilateral occipital lobe encephalomalacia compatible with remote infarctions. No evidence of acute hemorrhage, midline shift, mass effect or abnormal extra-axial fluid collection. Prominence of the ventricles and cortical sulci is commensurate with volume loss. The soft tissues and osseous structures are unremarkable. The visualized paranasal sinuses are clear. EKG REVEALED: SINUS RHYTHM WITH HR 66. WE ADMITTED PATIENT FOR FURTHER EVALUATION AND TREATMENT. SHE WAS STARTED ON NORMAL SALINE AT 125ML/HR AND HOME MEDICATIONS WERE RESUMED. WE PLAN TO FOLLOW UP WITH AM LABS, BRAIN MRI, AND CONTINUE TO MONITOR PATIENT. - Past Medical History Past Medical History: Dementia, CVA, Arthritis - Past Surgical History Surgical History: Cholecystectomy, Hysterectomy, No History - Family History Family Medical History: Cancer, [place] - Social History Does patient currently use any type of tobacco product: No Type of Tobacco Use: None Alcohol Use: None - Medications Home Medications: morphine Adverse Reaction (Verified 12/05/17 13:14) penicillin G Adverse Reaction (Verified 12/05/17 13:14) CONTINUE taking the following medications clonazepam 0.5 mg PO HS PRN 12/05/17 [History] memantine 5 mg PO BID 12/05/17 [History] - Review of Systems Constitutional: Weakness, Other (SLEEP DISTURBANCY ) Eyes: No Symptoms Reported ENT: No Symptoms Reported Respiratory: Shortness of Breath Cardiovascular: Chest Pain Gastrointestinal: Nausea Genitourinary: No Symptoms Reported Musculoskeletal: Leg Pain Skin: No Symptoms Reported Neurological: Weakness, Confusion - Physical Exam Vital Signs: Temperature 97.3 F Pulse Rate [Left Brachial] 73 Pulse Rate 70 Respiratory Rate 20 Blood Pressure [Left Calf] 193/78 Blood Pressure [Left Arm] 131/61 Blood Pressure [Right Arm] 172/67 Blood Pressure 168/71 O2 Sat by Pulse Oximetry 99 Oriented: Person Eyes: Normal Ear: Normal Nose: Normal Throat: Normal Respiratory: Diminished Throughout Cardiovascular: Normal. negative: S3, S4, Murmur : Normal Auscultation: Bowel Sounds: Normal Palpation: Normal Tenderness: Normal Skin: Decreased Turgur Musculoskeletal: Right, Left, Leg, Swelling, Tender Psychiatric: Agitation Mood Description: Anxious Affect: Normal Speech Pattern: Clear - Assessment/Plan (1) Dehydration Status: Acute Plan: NORMAL SALINE AT 125ML/HR, CONTINUE TO MONITOR (2) Altered mental state Qualifiers: Altered mental status type: transient alteration of awareness Qualified Code(s): R40.4 - Transient alteration of awareness Status: Acute Plan: OBTAIN BRAIN MRI, CONTINUE TO MONITOR (3) Leg pain Qualifiers: Laterality: bilateral Qualified Code(s): M79.604 - Pain in right leg; M79.605 - Pain in left leg Status: Acute Plan: BILATERAL LOWER EXTREMITY VENOUS DOPPLER (4) Dementia Status: Chronic Plan: CONTINUE HOME MEDS - Allergies Allergies/Adverse Reactions: Allergies Allergy/AdvReac Type Severity Reaction Status Date / Time morphine AdvReac Verified 12/05/17 13:14 penicillin G AdvReac Verified 12/05/17 13:14
[2017-12-06] MEDS ORDERED: PHARMACY CONSULT - TPN XX SCH (12:00)
[2017-12-06] MEDS ORDERED: BUTT CREAM (COMPOUND) ONE (12:43)
--- NOTE | 2017-12-06 13:22 | MRI ---
STUDY: MRI OF THE BRAIN WITHOUT GADOLINIUM HISTORY: Altered mental status. More altered mental status since Monday. Dementia. Technique: Multiplanar multi-sequence MRI of the brain was obtained utilizing standard departmental p rotocol. Sagittal and axial T1, axial T2, FLAIR, diffusion (DWI/ADC), GRE, and coronal T2 images thro [facility] the brain were performed. Comparison: Head CT from December 05, 2017. Findings: The sulci, cisterns and ventricles are prominent consistent with diffuse volume loss. There are confl uent and scattered foci of T2 prolongation in the periventricular and subcortical white matter of bot h hemispheres. This is a nonspecific finding which likely represents microangiopathic change in a pat ient of this age. There are chronic infarcts with encephalomalacia in the occipital lobes bilaterally. There is no armen dence of acute territorial infarction, hemorrhage, mass, mass effect, or midline shift. There are no abnormal intra-axial or extra-axial fluid collections. The major intracranial vascular flow voids appear intact. The left vertebral artery appears dominant. 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 IMPRESSION: 1. No evidence of acute intracranial abnormality. 2. 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 3. Nonspecific white matter change and volume loss. Reported By:
[2017-12-06] MEDS: BUTT CREAM (COMPOUND) TOP PRN (14:00)
[2017-12-06] MEDS ORDERED: HumuLIN R SUBCUT PRN ×2 (14:00→15:24)
--- NOTE | 2017-12-06 14:27 | VAS ---
HISTORY: Bilateral lower extremity pain Study: Bilateral lower extremity venous Doppler Comparison: None Technique: Multiple grayscale sonographic images were obtained. Findings: Sonographic evaluation of the deep venous drainage of both lower extremity demonstrated bilaterally p aid and common femoral veins, superficial femoral veins, popliteal veins, and tibial veins. The exam is negative for deep venous thrombosis in both lower extremities. IMPRESSION: Exam negative for deep venous thrombosis bilateral lower extremities Reported By:
[2017-12-06] MEDS: CLINIMIX 4.25 %/10 % 1,000 ML with MVI INJ (ADULT) 10 ML, TRACE ELEMENTS INJ 10 ML, TPN... IV SCH ×4 (14:37)
[2017-12-06] MEDS: PROTONIX INJ 40 MG VIAL IVP SCH (14:38)
[2017-12-06] MEDS ORDERED: DEXTROSE 10% 1,000 ML IV PRN (15:24)
[2017-12-06] MEDS: SNACK - Diabetic Appropriate PO SCH (20:02)
[2017-12-06] MEDS: LIPOSYN III 20% 100ML 100 ML IV SCH (20:43)
[2017-12-06] MEDS: KLONOPIN TAB 0.5 MG PO SCH (20:44)
[2017-12-06] MEDS: SENOKOT PO SCH (20:44)
[2017-12-06] MEDS: ARICEPT TAB 5 MG PO SCH (20:44)
[2017-12-07] MEDS: CLINIMIX 4.25 %/10 % 1,000 ML with MVI INJ (ADULT) 10 ML, TRACE ELEMENTS INJ 10 ML, TPN... IV SCH ×8 (04:30→19:08)
[2017-12-07 06:10] LABS: BASOPHILS % (AUTO) 0.3 % (0.2-1.0); EOSINOPHILS # (AUTO) 0.1 x10^3/uL (0.0-0.2); EOSINOPHILS % (AUTO) 0.8 % (0.9-2.9); HEMATOCRIT 31.1 % (36.0-47.0); HEMOGLOBIN 10.7 g/dL (12.0-16.0); LYMPHOCYTES % (AUTO) 26.5 % (21.0-51.0); MEAN CORPUSCULAR HEMOGLOBIN 32.3 pg (27.0-34.0); MEAN CORPUSCULAR HGB CONC 34.4 g/dL (33.0-35.0); MEAN CORPUSCULAR VOLUME 93.8 fL (80.0-100.0); MEAN PLATELET VOLUME 8.5 fL (7.4-11.0); MONOCYTES # (AUTO) 0.7 x10^3/uL (0.3-0.8); MONOCYTES % (AUTO) 9.2 % (0.0-13.0); NEUTROPHILS # (AUTO) 4.7 x10^3/uL (2.2-4.8); NEUTROPHILS % (AUTO) 63.2 % (42.0-75.0); PLATELET COUNT 167 X10^3/uL (150.0-450.0); RED BLOOD COUNT 3.32 X10^6/uL (3.5-5.4); RED CELL DISTRIBUTION WIDTH 14.4 % (11.6-16.5); WHITE BLOOD COUNT 7.5 X10^3/uL (3.6-10.0)
[2017-12-07 06:13] LABS: ALBUMIN 2.4 g/dL (3.4-5.0); CALCIUM 8.8 mg/dL (8.5-10.1); CARBON DIOXIDE 27.2 mmol/L (21-32); COR CA(FOR HYPOALB) 10.1 mg/dL (8.5-10.1); CREATININE 1.18 mg/dL (0.55-1.02); MAGNESIUM 1.9 mg/dL (1.7-2.9); PHOSPHORUS 2.8 mg/dL (2.6-4.7); TOTAL PROTEIN 4.9 g/dL (6.4-8.2)
--- NOTE | 2017-12-07 11:43 | PCM.PROG ---
Progress Note - Progress Note for Day of Date of Exam: 12/06/17 - Subjective Subjective: WAS ADMITTED FOR ALTERED MENTAL STATUS, GENERALIZED WEAKNESS, AND DEHYDRATION. TODAY, SHE IS LYING IN BED WITH EYES CLOSED ON MORNING ROUNDS. SHE IS DIFFICULT TO AROUSE THIS MORNING. FAMILY REPORTS THAT SHE HAS NOT BEEN EATING AND HAS NOT BEEN ABLE TO STAND OR AMBULATE SHE USUALLY DOES. THEY REPORT THAT PATIENT HAS BEEN COMPLAINING OF BILATERAL LEG PAIN. ON EXAMINATION, HEART IS REGULAR IN RATE AND RHYTHM. BILATERAL LUNGS ARE NOTED WITH DIMINISHED LUNG SOUNDS THEROUGHOUT. ABDOMEN IS ROUND, SOFT, AND NON- TENDER WITH NORMAL BOWEL SOUNDS NOTED IN ALL QUADRANTS. BILATERAL LOWER EXTREMITIES ARE NOTED WITH TRACE EDEMA. HER VITALS TODAY ARE 97.3-73-20-99%-131/ 61. LABS WERE OBTAINED. ABNORMAL LAB VALUES INCLUDE THE FOLLOWING: HGB 11.6, HCT 33.8, CHLORIDE 109, BUN 24, CREATININE 1.17, TOTAL PROTEIN 5.4, ALBUMIN 2.6. BLOOD CULTURES ARE PENDING. CARDIAC ENZYMES AND EKGS HAVE BEEN WITHIN NORMAL LIMITS. TODAY, WE PLAN TO OBTAIN A BILATERAL LOWER EXTREMITY VENOUS DOPPLER AND A BRAIN MRI WITHOUT CONTRAST. WE WILL START HER ON TPN. OTHERWISE, WE WILL FOLLOW UP WITH AM LABS AND CONTINUE TO MONITOR PATIENT. - Past Medical Family Social History Past Med/Fam/Surg Hx: No changes since H&P Allergies: Allergies morphine Adverse Reaction (Verified 12/05/17 13:14) penicillin G Adverse Reaction (Verified 12/05/17 13:14) - Review of Systems ROS: No change since H&P - Vital Signs and I&O's Vital Signs: Temperature 98.4 F Pulse Rate [Left Brachial] 57 Pulse Rate 70 Respiratory Rate 18 Blood Pressure [Left Calf] 193/78 Blood Pressure [Left Arm] 110/53 Blood Pressure [Right Arm] 192/83 Blood Pressure 168/71 O2 Sat by Pulse Oximetry 100 Intake and Output: Intake & Output 12/04/17 12/05/17 12/06/17 12/07/17 11:59 11:59 11:59 11:59 Intake Total 928 / 928 2121 Balance 928 / 928 2121 - Physical Exam Oriented: Unable to test Eyes: Normal Ear: Normal Nose: Normal Throat: Normal Cardiovascular: Normal. negative: S3, S4, Murmur : Normal Auscultation: Bowel Sounds: Normal Palpation: Normal Tenderness: Normal Skin: Decreased Turgur Musculoskeletal: Right, Left, Leg, Swelling, Tender Psychiatric: Agitation Mood Description: Anxious Affect: Normal Speech Pattern: Delayed - Laboratory and Diagnostics Result Diagrams: 12/07/17 05:30 12/07/17 05:30 Labs: 12/05/17 13:55 Blood Blood Culture - Preliminary 12/05/17 13:50 Blood Blood Culture - Preliminary Laboratory WBC 7.5 X10^3/uL (3.6-10.0) 12/07/17 05:30 RBC 3.32 X10^6/uL (3.5-5.4) L 12/07/17 05:30 Hgb 10.7 g/dL (12.0-16.0) L 12/07/17 05:30 Hct 31.1 % (36.0-47.0) L 12/07/17 05:30 MCV 93.8 fL (80.0-100.0) 12/07/17 05:30 MCH 32.3 pg (27.0-34.0) 12/07/17 05:30 MCHC 34.4 g/dL (33.0-35.0) 12/07/17 05:30 RDW 14.4 % (11.6-16.5) 12/07/17 05:30 Plt Count 167 X10^3/uL (150.0-450.0) 12/07/17 05:30 MPV 8.5 fL (7.4-11.0) 12/07/17 05:30 Neut % (Auto) 63.2 % (42.0-75.0) 12/07/17 05:30 Lymph % (Auto) 26.5 % (21.0-51.0) 12/07/17 05:30 [place] % (Auto) 9.2 % (0.0-13.0) 12/07/17 05:30 Eos % (Auto) 0.8 % (0.9-2.9) L 12/07/17 05:30 Baso % (Auto) 0.3 % (0.2-1.0) 12/07/17 05:30 Neut # (Auto) 4.7 x10^3/uL (2.2-4.8) 12/07/17 05:30 Lymph # (Auto) 2.0 X10^3/uL (1.3-2.9) 12/07/17 05:30 [place] # (Auto) 0.7 x10^3/uL (0.3-0.8) 12/07/17 05:30 Eos # (Auto) 0.1 x10^3/uL (0.0-0.2) 12/07/17 05:30 Baso # (Auto) 0.0 X10^3/uL (0.0-0.1) 12/07/17 05:30 Absolute Nucleated RBC 0.0 /100WBC 12/07/17 05:30 Sodium 140 mmol/L (136-145) 12/07/17 05:30 Corrected Sodium 141 mmol/L (136-145) 12/07/17 05:30 Potassium 4.3 mmol/L (3.5-5.1) 12/07/17 05:30 Chloride 109 mmol/L (98-107) H 12/07/17 05:30 Carbon Dioxide 27.2 mmol/L (21-32) 12/07/17 05:30 BUN 29 mg/dL (7-18) H 12/07/17 05:30 Creatinine 1.18 mg/dL (0.55-1.02) H 12/07/17 05:30 Est GFR (MDRD) Af Amer 56 (>60) L 12/07/17 05:30 Est GFR (MDRD) Non-Af 46 (>60) L 12/07/17 05:30 Glucose 134 mg/dL (65-99) H 12/07/17 05:30 POC Glucose (mg/dL) 109 mg/dL (65-99) H 12/07/17 11:24 Lactic Acid 0.8 mmol/L (0.4-2.0) 12/05/17 14:10 Calcium 8.8 mg/dL (8.5-10.1) 12/07/17 05:30 Corrected Calcium 10.1 mg/dL (8.5-10.1) 12/07/17 05:30 Phosphorus 2.8 mg/dL (2.6-4.7) 12/07/17 05:30 Magnesium 1.9 mg/dL (1.7-2.9) 12/07/17 05:30 Total Bilirubin 0.20 mg/dL (0.2-1.0) 12/07/17 05:30 AST 20 Units/L (15-37) 12/07/17 05:30 ALT 18 Units/L (12-78) 12/07/17 05:30 Alkaline Phosphatase 56 Units/L (46-116) 12/07/17 05:30 Creatine Kinase 30 Units/L (26-192) 12/06/17 02:25 CK-MB (CK-2) 1.3 ng/mL (0-4.0) 12/06/17 02:25 CK/CKMB % Calc 4.3 % (<4) 12/06/17 02:25 Troponin I 0.02 ng/mL (0-1.5) 12/06/17 02:25 Total Protein 4.9 g/dL (6.4-8.2) L 12/07/17 05:30 Albumin 2.4 g/dL (3.4-5.0) L 12/07/17 05:30 Globulin 2.5 g/dL (2.5-4.5) 12/07/17 05:30 Albumin/Globulin Ratio 1.0 Ratio (1.1-2.1) L 12/07/17 05:30 Prealbumin 18.2 mg/dL (18-35.7) 12/06/17 05:49 Triglycerides 33 mg/dL (0-150) 12/07/17 05:30 Cholesterol 200 mg/dL (0-200) 12/06/17 05:44 LDL Cholesterol, Calc 122 mg/dL (0-100) H 12/06/17 05:44 HDL Cholesterol 67 mg/dL (40-60) H 12/06/17 05:44 Cholesterol/HDL Ratio 3.0 (0.0-5.0) 12/06/17 05:44 Specimen Type Catherized urine 12/05/17 15:50 Urine Color Yellow (YELLOW) 12/05/17 15:50 Urine Appearance Clear (CLEAR) 12/05/17 15:50 Urine pH 5.0 (5.0 - 8.0) 12/05/17 15:50 Ur Specific [place] 1.025 (1.000-1.030) 12/05/17 15:50 Urine Protein Negative (NEGATIVE) 12/05/17 15:50 Urine Glucose (UA) Negative (NEGATIVE) 12/05/17 15:50 Urine Ketones Negative (NEGATIVE) 12/05/17 15:50 Urine Occult Blood Negative (NEGATIVE) 12/05/17 15:50 Urine Nitrite Negative (NEGATIVE) 12/05/17 15:50 Urine Bilirubin Negative (NEGATIVE) 12/05/17 15:50 Urine Urobilinogen Normal (NORMAL) 12/05/17 15:50 Ur Leukocyte Esterase Negative (NEGATIVE) 12/05/17 15:50 - Plan (1) Dehydration Status: Acute Plan: NORMAL SALINE AT 125ML/HR, TPN, CONTINUE TO MONITOR (2) Altered mental state Status: Acute Qualifiers: Altered mental status type: transient alteration of awareness Qualified Code(s): R40.4 - Transient alteration of awareness Plan: OBTAIN BRAIN MRI, CONTINUE TO MONITOR (3) Leg pain Status: Acute Qualifiers: Laterality: bilateral Qualified Code(s): M79.604 - Pain in right leg; M79.605 - Pain in left leg Plan: BILATERAL LOWER EXTREMITY VENOUS DOPPLER (4) Dementia Status: Inactive Plan: CONTINUE HOME MEDS
[2017-12-07] MEDS: PROTONIX INJ 40 MG VIAL IVP SCH (11:50)
[2017-12-07] MEDS: VITAMIN D3 PO SCH (11:50)
[2017-12-07] MEDS: ASPIRIN PO SCH (11:50)
[2017-12-07] MEDS: VITAMIN B-6 PO SCH (11:50)
[2017-12-07] MEDS: NAMENDA TAB 10 MG PO SCH ×2 (11:50→20:49)
[2017-12-07] MEDS: PLAVIX PO SCH (11:50)
[2017-12-07] MEDS: KLONOPIN TAB 0.5 MG PO SCH (20:48)
[2017-12-07] MEDS: LIPOSYN III 20% 100ML 100 ML IV SCH (20:49)
[2017-12-07] MEDS: ARICEPT TAB 5 MG PO SCH (20:54)
[2017-12-07] MEDS: SENOKOT PO SCH (20:54)
[2017-12-07] MEDS: SNACK - Diabetic Appropriate PO SCH (21:05)
[2017-12-07] MEDS: BUTT CREAM (COMPOUND) TOP PRN (21:06)
[2017-12-08 06:11] LABS: ALBUMIN 2.3 g/dL (3.4-5.0); CALCIUM 8.7 mg/dL (8.5-10.1); CARBON DIOXIDE 23.8 mmol/L (21-32); COR CA(FOR HYPOALB) 10.1 mg/dL (8.5-10.1); CREATININE 1.11 mg/dL (0.55-1.02); TOTAL PROTEIN 4.9 g/dL (6.4-8.2)
[2017-12-08] MEDS: PROTONIX INJ 40 MG VIAL IVP SCH (08:57)
[2017-12-08] MEDS: NAMENDA TAB 10 MG PO SCH (08:58)
[2017-12-08] MEDS: ASPIRIN PO SCH (08:58)
[2017-12-08] MEDS: PLAVIX PO SCH (08:58)
[2017-12-08] MEDS: VITAMIN D3 PO SCH (08:58)
[2017-12-08] MEDS: VITAMIN B-6 PO SCH (08:58)
[2017-12-08] MEDS: CLINIMIX 4.25 %/10 % 1,000 ML with MVI INJ (ADULT) 10 ML, TRACE ELEMENTS INJ 10 ML, TPN... IV SCH ×4 (08:59)
[2017-12-08 12:07] VITALS: BP 134/63
--- NOTE | 2017-12-26 23:45 | DR.CARTERD ---
- Discharge Summary for: Discharge Summary for Date of:: 12/08/17 - Admission Date Date of Admission: 12/05/17 - Admission Diagnoses Admission Diagnosis: (1) Dehydration (2) Altered mental state (3) Leg pain (4) Dementia - Discharge Date Discharge Date: 12/08/17 - Discharge Diagnoses Discharge Diagnosis: (1) Dehydration (2) Altered mental state (3) Leg pain (4) Dementia - Hospital Course Hospital Course: DAY ONE, MS. PERKINS IS A 87 YEAR OLD PATIENT OF OURS WHO PRESENTED TO THE EMERGENCY ROOM WITH COMPLAINTS OF GENERALIZED WEAKNESS, CHEST PAIN, SLEEP DISTURBANCY, AND NAUSEA. FAMILY REPORTED THAT PATIENT HAD BEEN NOTED WITH INCREASED CONFUSION AND HAD BEEN YELLING OUT ALL THROUGHOUT THE NIGHT. THEY REPORTED THAT SHE WAS UNABLE TO STAND. ON ARRIVAL, VITALS WERE 97.6-70-14-100%- 168/71. LABS WERE OBTAINED. ABNORMAL LAB VALUES INCLUDED THE FOLLOWING: BUN 29, CREATININE 1.23, TOTAL PROTEIN 6.2, ALBUMIN 3.1. CARDIAC ENZYMES WITHIN NORMAL LIMITS. URINALYSIS UNREMARKABLE. BLOOD CULTURES WERE OBTAINED. A CHEST XRAY WAS OBTAINED AND REVEALED: NO SIGNIFICANT ACUTE CARDIOPULMONARY ABNORMALITY. 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 EKG REVEALED: SINUS RHYTHM WITH HR 66. WE ADMITTED PATIENT FOR FURTHER EVALUATION AND TREATMENT. SHE WAS STARTED ON NORMAL SALINE AT 125ML/HR AND HOME MEDICATIONS WERE RESUMED. DAY TWO, MS. PERKINS WAS ADMITTED FOR ALTERED MENTAL STATUS, GENERALIZED WEAKNESS, AND DEHYDRATION. SHE WAS LYING IN BED WITH EYES CLOSED ON MORNING ROUNDS. SHE WAS DIFFICULT TO AROUSE. FAMILY REPORTED THAT SHE HAD NOT BEEN EATING AND HAD NOT BEEN ABLE TO STAND OR AMBULATE SHE USUALLY DID. THEY REPORTED THAT PATIENT HAD BEEN COMPLAINING OF BILATERAL LEG PAIN. ON EXAMINATION, HEART WAS REGULAR IN RATE AND RHYTHM. BILATERAL LUNGS WERE NOTED WITH DIMINISHED LUNG SOUNDS THROUGHOUT. ABDOMEN WAS ROUND, SOFT, AND NON-TENDER WITH NORMAL BOWEL SOUNDS NOTED IN ALL QUADRANTS. BILATERAL LOWER EXTREMITIES WERE NOTED WITH TRACE EDEMA. HER VITALS TODAY WERE 97.3-73-20-99%-131/61. LABS WERE OBTAINED. ABNORMAL LAB VALUES INCLUDED THE FOLLOWING: HGB 11.6, HCT 33.8, CHLORIDE 109, BUN 24, CREATININE 1.17, TOTAL PROTEIN 5.4, ALBUMIN 2.6. CARDIAC ENZYMES AND EKGS WITHIN NORMAL LIMITS. WE STARTED HER ON TPN AND CONTINUED TO MONITOR PATIENT. ON DAY THREE, PATIENT SHOWED NO IMPROVEMENT IN SYMPTOMS. SHE CONTINUED TO BE DIFFICULT TO AROUSE. 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 BILATERAL VENOUS DOPPLER WAS NEGATIVE FOR DVT. WE DISCUSSED PATIENT'S DETERIORATING CONDITION AND OPTIONS FOR DISCHARGE WITH FAMILY. FAMILY REQUESTED SERVICES OF HOME HOSPICE. CASE MANAGEMENT SOUGHT PLACEMENT. DAY FOUR, NO CHANGES WERE NOTED WITH PATIENT'S CONDITION. FAMILY WAS IN AGREEMENT WITH HOME HOSPICE FOR COMFORT MEASURES. WE PLANNED FOR DISCHARGE. INSTRUCTIONS FOR MEDICATIONS AND FOLLOW UP WERE DISCUSSED WITH PATIENT AND FAMILY, BOTH VOICED UNDERSTANDING. PATIENT DISCHARGED HOME IN STABLE CONDITION WITH FAMILY. - Discharge Medications Discharge Medications: Home Medication List clonazepam 0.5 mg PO HS PRN 12/05/17 [History] memantine 5 mg PO BID 12/05/17 [History] megestrol 20 mg PO BID #60 tab 12/08/17 [Rx] olanzapine [Zyprexa] 2.5 mg PO BID #60 tab 12/08/17 [Rx] Prescriptions: megestrol Grabiel Root olanzapine [Zyprexa] Grabiel Root Home medications clopidogrel [Plavix] 75 mg PO DAILY 04/28/13 donepezil 5 mg PO HS #30 tab 05/02/13 aspirin 325 mg PO HS 08/31/15 cholecalciferol (vitamin D3) 5,000 iu PO DAILY 12/31/16 pyridoxine (vitamin B6) [Vitamin B-6] 100 mg PO DAILY 12/31/16 - Discharge Disposition Discharge Disposition: Patient is to follow up in our office as needed.
--- NOTE | 2018-02-01 19:37 | PCM.PROG ---
Progress Note - Progress Note for Day of Date of Exam: 12/07/17 - Subjective Subjective: WAS ADMITTED FOR ALTERED MENTAL STATUS, GENERALIZED WEAKNESS, AND DEHYDRATION. TODAY, SHE IS LYING IN BED WITH EYES CLOSED ON MORNING ROUNDS. SHE CONTINUES TO BE DROWSY AND DIFFICULT TO AROUSE. ON EXAMINATION, HEART IS REGULAR IN RATE AND RHYTHM. BILATERAL LUNGS ARE NOTED WITH DIMINISHED LUNG SOUNDS THEROUGHOUT. ABDOMEN IS ROUND, SOFT, AND NON-TENDER WITH NORMAL BOWEL SOUNDS NOTED IN ALL QUADRANTS. BILATERAL LOWER EXTREMITIES ARE NOTED WITH TRACE EDEMA. HER VITALS TODAY ARE 98.4-57-18-100%-110/53. LABS WERE OBTAINED. ABNORMAL LAB VALUES INCLUDE THE FOLLOWING: RBC 3.32, HGB 10.7, HCT 31.1, CHLORIDE 109, BUN 34, CREATININE 1.11, GLUCOSE 126, TOTAL BILI 0.10, TOTAL PROTEIN 4.9, ALBUMIN 2.3. BLOOD CULTURES ARE PENDING. BRAIN MRI WAS OBTAINED YESTERDAY. IT REVEALED: No evidence of acute intracranial abnormality. 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 Nonspecific white matter change and volume loss. A BILATERAL LOWER EXTREMITY VENOUS DOPPLER WAS OBTAINED AND REVEALED: Exam negative for deep venous thrombosis bilateral lower extremities. TODAY, WE WILL SET PATIENT UP WITH HOSPICE CARE OPTIONS FOR AFTER DISCHARGE. OTHERWISE, WE WILL FOLLOW UP WITH AM LABS AND CONTINUE TO MONITOR PATIENT. - Past Medical Family Social History Past Med/Fam/Surg Hx: No changes since H&P Allergies: Allergies morphine Adverse Reaction (Verified 12/05/17 13:14) penicillin G Adverse Reaction (Verified 12/05/17 13:14) - Review of Systems ROS: No change since H&P - Vital Signs and I&O's Vital Signs: Temperature 99.0 F Pulse Rate [Left Brachial] 61 Pulse Rate 70 Respiratory Rate 12 Blood Pressure [Left Calf] 193/78 Blood Pressure [Left Arm] 134/63 Blood Pressure [Right Arm] 192/83 Blood Pressure 168/71 O2 Sat by Pulse Oximetry 99 - Physical Exam Oriented: Unable to test Eyes: Normal Ear: Normal Nose: Normal Throat: Normal Cardiovascular: Normal. negative: S3, S4, Murmur : Normal Auscultation: Bowel Sounds: Normal Tenderness: Normal Skin: Decreased Turgur Musculoskeletal: Right, Left, Leg, Swelling, Tender Psychiatric: Agitation Mood Description: Anxious Affect: Normal Speech Pattern: Delayed - Laboratory and Diagnostics Result Diagrams: 12/07/17 05:30 12/08/17 05:05 Labs: 12/05/17 13:55 Blood Blood Culture - Final 12/05/17 13:50 Blood Blood Culture - Final Laboratory WBC 7.5 X10^3/uL (3.6-10.0) 12/07/17 05:30 RBC 3.32 X10^6/uL (3.5-5.4) L 12/07/17 05:30 Hgb 10.7 g/dL (12.0-16.0) L 12/07/17 05:30 Hct 31.1 % (36.0-47.0) L 12/07/17 05:30 MCV 93.8 fL (80.0-100.0) 12/07/17 05:30 MCH 32.3 pg (27.0-34.0) 12/07/17 05:30 MCHC 34.4 g/dL (33.0-35.0) 12/07/17 05:30 RDW 14.4 % (11.6-16.5) 12/07/17 05:30 Plt Count 167 X10^3/uL (150.0-450.0) 12/07/17 05:30 MPV 8.5 fL (7.4-11.0) 12/07/17 05:30 Neut % (Auto) 63.2 % (42.0-75.0) 12/07/17 05:30 Lymph % (Auto) 26.5 % (21.0-51.0) 12/07/17 05:30 [place] % (Auto) 9.2 % (0.0-13.0) 12/07/17 05:30 Eos % (Auto) 0.8 % (0.9-2.9) L 12/07/17 05:30 Baso % (Auto) 0.3 % (0.2-1.0) 12/07/17 05:30 Neut # (Auto) 4.7 x10^3/uL (2.2-4.8) 12/07/17 05:30 Lymph # (Auto) 2.0 X10^3/uL (1.3-2.9) 12/07/17 05:30 [place] # (Auto) 0.7 x10^3/uL (0.3-0.8) 12/07/17 05:30 Eos # (Auto) 0.1 x10^3/uL (0.0-0.2) 12/07/17 05:30 Baso # (Auto) 0.0 X10^3/uL (0.0-0.1) 12/07/17 05:30 Absolute Nucleated RBC 0.0 /100WBC 12/07/17 05:30 Sodium 139 mmol/L (136-145) 12/08/17 05:05 Corrected Sodium 140 mmol/L (136-145) 12/08/17 05:05 Potassium 4.1 mmol/L (3.5-5.1) 12/08/17 05:05 Chloride 109 mmol/L (98-107) H 12/08/17 05:05 Carbon Dioxide 23.8 mmol/L (21-32) 12/08/17 05:05 BUN 34 mg/dL (7-18) H 12/08/17 05:05 Creatinine 1.11 mg/dL (0.55-1.02) H 12/08/17 05:05 Est GFR (MDRD) Af Amer 60 (>60) 12/08/17 05:05 Est GFR (MDRD) Non-Af 49 (>60) L 12/08/17 05:05 Glucose 126 mg/dL (65-99) H 12/08/17 05:05 POC Glucose (mg/dL) 113 mg/dL (65-99) H 12/08/17 13:22 Lactic Acid 0.8 mmol/L (0.4-2.0) 12/05/17 14:10 Calcium 8.7 mg/dL (8.5-10.1) 12/08/17 05:05 Corrected Calcium 10.1 mg/dL (8.5-10.1) 12/08/17 05:05 Phosphorus 2.8 mg/dL (2.6-4.7) 12/07/17 05:30 Magnesium 1.9 mg/dL (1.7-2.9) 12/07/17 05:30 Total Bilirubin 0.10 mg/dL (0.2-1.0) L 12/08/17 05:05 AST 17 Units/L (15-37) 12/08/17 05:05 ALT 17 Units/L (12-78) 12/08/17 05:05 Alkaline Phosphatase 54 Units/L (46-116) 12/08/17 05:05 Creatine Kinase 30 Units/L (26-192) 12/06/17 02:25 CK-MB (CK-2) 1.3 ng/mL (0-4.0) 12/06/17 02:25 CK/CKMB % Calc 4.3 % (<4) 12/06/17 02:25 Troponin I 0.02 ng/mL (0-1.5) 12/06/17 02:25 Total Protein 4.9 g/dL (6.4-8.2) L 12/08/17 05:05 Albumin 2.3 g/dL (3.4-5.0) L 12/08/17 05:05 Globulin 2.6 g/dL (2.5-4.5) 12/08/17 05:05 Albumin/Globulin Ratio 0.9 Ratio (1.1-2.1) L 12/08/17 05:05 Prealbumin 18.2 mg/dL (18-35.7) 12/06/17 05:49 Triglycerides 33 mg/dL (0-150) 12/07/17 05:30 Cholesterol 200 mg/dL (0-200) 12/06/17 05:44 LDL Cholesterol, Calc 122 mg/dL (0-100) H 12/06/17 05:44 HDL Cholesterol 67 mg/dL (40-60) H 12/06/17 05:44 Cholesterol/HDL Ratio 3.0 (0.0-5.0) 12/06/17 05:44 Specimen Type Catherized urine 12/05/17 15:50 Urine Color Yellow (YELLOW) 12/05/17 15:50 Urine Appearance Clear (CLEAR) 12/05/17 15:50 Urine pH 5.0 (5.0 - 8.0) 12/05/17 15:50 Ur Specific [place] 1.025 (1.000-1.030) 12/05/17 15:50 Urine Protein Negative (NEGATIVE) 12/05/17 15:50 Urine Glucose (UA) Negative (NEGATIVE) 12/05/17 15:50 Urine Ketones Negative (NEGATIVE) 12/05/17 15:50 Urine Occult Blood Negative (NEGATIVE) 12/05/17 15:50 Urine Nitrite Negative (NEGATIVE) 12/05/17 15:50 Urine Bilirubin Negative (NEGATIVE) 12/05/17 15:50 Urine Urobilinogen Normal (NORMAL) 12/05/17 15:50 Ur Leukocyte Esterase Negative (NEGATIVE) 12/05/17 15:50 - Plan (1) Dehydration Status: Acute Plan: NORMAL SALINE AT 125ML/HR, TPN, CONTINUE TO MONITOR (2) Altered mental state Status: Acute Qualifiers: Altered mental status type: transient alteration of awareness Qualified Code(s): R40.4 - Transient alteration of awareness Plan: OBTAIN BRAIN MRI, CONTINUE TO MONITOR (3) Leg pain Status: Acute Qualifiers: Laterality: bilateral Qualified Code(s): M79.604 - Pain in right leg; M79.605 - Pain in left leg Plan: BILATERAL LOWER EXTREMITY VENOUS DOPPLER (4) Dementia Status: Inactive Plan: CONTINUE HOME MEDS
== END 2017-12-08 15:25 | disposition hospice, home (50) ==
LOC: ICU 12:55 → ER 12:55 → ICU 17:32
PROVIDERS: ADMIT Internal Medicine; ATTEND Internal Medicine
DX: R26.89 Other abnormalities of gait and mobility; R60.0 Localized edema; G93.89 Other specified disorders of brain; R73.09 Other abnormal glucose; M79.605 Pain in left leg; R94.4 Abnormal results of kidney function studies; H27.03 Aphakia, bilateral; R06.02 Shortness of breath; R40.4 Transient alteration of awareness; R53.1 Weakness; R94.31 Abnormal electrocardiogram [ECG] [EKG]; E86.0 Dehydration; Z79.899 Other long term (current) drug therapy; M79.604 Pain in right leg
CPT/HCPCS: 36415; 70450; 70551; 71010; 71045; 80053; 80061; 81003; 82550; 82553; 83605; 83735; 84100; 84134; 84478; 84484; 85025; 87040; 93005; 93010; 93970; 96365; 96367; 97112; 97163; 97167; 97535; 99284; A4216; A4222; B4189; C9113; G0378; J3490; J7030